=== PATIENT | female | born 1985 | race Caucasian/White ===

== ENCOUNTER 2024-02-12 18:41 | Emergency (ER) | payer SELFPAY ==
[2024-02-12] MEDS ORDERED: ACETAMINOPHEN 1000 MG/100 ML BAG IVPB ONE (18:47)
[2024-02-12] MEDS ORDERED: METOCLOPRAMIDE HCL INJECTION 10 MG/2 ML VIAL IVPB ONE (18:47)
[2024-02-12] MEDS ORDERED: LACTATED RINGERS SOLUTION 1000 ML INFUS.BAG IV ONE (18:47)
[2024-02-12] MEDS ORDERED: levETIRAcetam 500 MG/5 ML INJECTION VIAL IVPB ONE (18:48)
[2024-02-12 19:39] VITALS: BP 108/72; PULSE 90; RESP 18; TEMP 98.4; BMI 27.1
== END 2024-02-12 19:39 | disposition left against medical advice (07) ==
LOC: FER 18:41
DX: G40.909 Epilepsy, unspecified, not intractable, without status epilepticus (principal)
CPT/HCPCS: 71045-TC-FY; 81003; 82962; 87086; 99284-25